=== PATIENT | male | born 1955 | race Caucasian/White ===

== ENCOUNTER 2024-03-18 16:23 | Emergency (ER) | payer MEDICARE, SELFPAY ==
[2024-03-18 16:50] VITALS: BP 149/83; PULSE 95; RESP 17; TEMP 36.9; O2SAT 100; BMI 27.7
--- NOTE | 2024-03-18 18:26 | ED_ITS ---
Discharge Plan Disposition Patient Disposition: Home, Self-Care Condition: Good Prescriptions Prescriptions: No Action lisinopril 10 mg tablet 10 mg PO DAILY Referrals Follow up/Referrals: Daljit Mai MD [Primary Care Provider] - See instructions Activity Restrictions/Add. Instructions Additional Instructions/Restrictions: Keep site clean and dry. If symptoms worsen or you develop new symptoms return to clinic/ER. Clinical Impressions Clinical Impression: Laceration of head Qualifiers: Encounter type: initial encounter Location of open wound of head: scalp Foreign body presence: without foreign body Qualified Code(s): S01.01XA - Laceration without foreign body of scalp, initial encounter Instructions Patient Instructions: DI for Open Laceration Print Language Print Language: Finnish Discharge ED Provider: Aline Ortega [facility] General Stated complaint: AO 03/18/24 1545 hit in head with board Mode of Arrival: Ambulatory Source of Information: Patient Limitations: No Limitations Time Seen by Provider: 03/18/24 18:09 Description of Symptoms (Recalled from Triage Doc. by RN): PATIENT C/O LACERATION TO TOP OF HEAD AFTER GETTING HIT WITH A BOARD THIS AFTERNOON HEENT Symptoms (Recalled from RN notes): Yes Resp Symptoms (Recalled from RN notes): No Skin Symptoms (Recalled from RN notes): Yes MS Symptoms (Recalled from RN notes): No Functional Status (Recalled from RN notes): WNL History of Present Illness Provider Complaint: Pt reports that he was working in the barn and a beam fell on his head. He relates that he has a laceration on his head. He denies LOC, dizziness, or confusion. Related Data Home Medications ?Medication ?Instructions ?Recorded ?Confirmed lisinopril 10 mg tablet 10 mg PO DAILY 02/20/18 03/18/24 Allergies Allergy/AdvReac Type Severity Reaction Status Date / Time doxycycline Allergy Unknown Verified 03/18/24 17:06 allergy reaction Sulfa (Sulfonamide Allergy Unknown Verified 03/18/24 17:06 Antibiotics) allergy reaction Worker's Comp Is this a Worker's Comp case?: No [facility] Disclaimer: The information contained in this section may have been updated after the patient was seen, as this information can be updated by other users. Medical History (Updated 03/18/24 @ 18:34 by Aline Ortega APRN) Hypertension Social History Smoking Status: Never smoker alcohol intake: never current occupational status: employed Travel in the last 8 weeks: Inside the [place] ROS Obtained: Yes All systems reviewed & no additional complaints except as documented Constitutional Constitutional: Reports system reviewed and no additional complaints, except as documented Eyes Eyes: Reports system reviewed and no additional complaints, except as documented ENT Ears, Nose, Mouth, and Throat: Reports system reviewed and no additional complaints, except as documented Cardiovascular Cardiovascular: Reports system reviewed and no additional complaints, except as documented Respiratory Respiratory: Reports system reviewed and no additional complaints, except as documented Gastrointestinal Gastrointestingal: Reports system reviewed and no additional complaints, except as documented Genitourinary Male Genitourinary: Reports system reviewed and no additional complaints, except as documented Musculoskeletal Musculoskeletal: Reports system reviewed and no additional complaints, except as documented Integumentary/Breasts Skin/Breast: Reports system reviewed and no additional complaints, except as documented and Reports as per HPI Comments: head laceration Neurologic Neurologic: Reports system reviewed and no additional complaints, except as documented Endocrine Endocrine: Reports system reviewed and no additional complaints, except as documented Hematologic/Lymphatic Henatologic/Lymphatic: Reports system reviewed and no additional complaints, except as documented Allergic/Immunologic Allergic/Immunologic: Reports system reviewed and no additional complaints, except as documented Physical Exam General General appearance: alert and in no apparent distress Expanded Head Exam Head exam physical: Present laceration Head image: 2 1. laceration. Approx 1/2 inch. Well approximated. Eye Eye exam: Present normal appearance ENT ENT exam: Present normal exam and normal oropharynx Neck Neck exam: Present normal inspection and full ROM Chest Chest inspection: Present normal inspection and symmetric chest wall rise Respiratory Respiratory exam: Present normal lung sounds bilaterally Cardiovascular Cardiovascular exam: Present regular rate and normal rhythm Abdominal Exam Abdominal exam: Present soft Extremities Exam Extremities exam: Present normal inspection Back Exam Back exam: Present normal inspection Neurological Exam Neurological exam: Present alert, oriented X3 and normal gait Psychiatric Psychiatric exam: Present normal affect and normal mood Skin Skin exam: Present warm, dry and other (laceration on top of head) Lymphatic Lymphatic Findings: no adenopathy Medical Decision Making Medical Records Screening: Per USPSTF and CDC recommendations, given the prevalence of disease in our region, it is our hospital?s policy to screen for HIV and viral Hepatitis for all patients aged 18 and over and those with ongoing risk factors. Thierno Inquiry Pt receiving controlled substance: No Thierno was queried for this patient: No Vital Signs: 11/09/24 16:50 Temperature 98.5 F Temperature Source Oral Pulse Rate [Left Brachial] 95 H Respiratory Rate 17 Blood Pressure [Left Arm] 149/83 H Blood Pressure Mean [Left Arm] 105 Blood Pressure Source [Left Arm] Automatic Cuff Blood Pressure Position [Left Arm] Sitting 02 Sat by Pulse Oximetry 100 Oxygen Delivery Method Room Air Medical Decision Narrative: Discussed the pros and cons of staple placement. Pt states that he does not wish to have scott at this time.
[2024-03-18 18:39] VITALS: BP 149/83; PULSE 95; RESP 17; TEMP 36.9; O2SAT 100
== END 2024-03-18 18:41 | disposition home or self-care (01) ==
PROVIDERS: Emergency Provider Nurse Practitioner Family; PCP Family Medicine
DX: S01.01XA Laceration without foreign body of scalp, initial encounter (principal); W22.8XXA Striking against or struck by other objects, initial encounter
CPT/HCPCS: 12001; 99214; G0382

== ENCOUNTER 2024-04-19 11:29 | Day surgery (SDC) | payer MEDICARE, SELFPAY ==
[2024-04-18 13:34] VITALS: BMI 29.5
[2024-04-19] MEDS: LACTATED RINGERS 1000ML 1,000 ML 25 ML IV (11:50)
[2024-04-19 11:55] VITALS: BP 165/83; PULSE 78; RESP 18; TEMP 36.3; O2SAT 99
--- NOTE | 2024-04-19 12:28 | EXP.ANES.CKL ---
[facility] Disclaimer: The information contained in this section may have been updated after the patient was seen, as this information can be updated by other users. Medical History Hypertension Surgical History History of esophagogastroduodenoscopy (EGD) History of colonoscopy Family History (Updated 04/19/24 @ 11:50 by Mary Morris RN) Other No significant family history Social History (Updated 04/19/24 @ 11:51 by Mary Morris RN) Smoking Status: Never smoker alcohol intake: never substance use type: denies use current occupational status: employed Travel in the last 8 weeks: None caffeine: No [facility] Anesthesia Checklist Patient Identification Patient Identification: Verbal (Name & ) Structural Data Admitted From: Home Planned Operative Procedure/s: egd,colonoscopy Consent for Planned Operative Procedure(s) Verified: Yes NPO Status Verified Time NPO: 00:00 Airway Assessment Mallampati Score:: Class II C-Spine Mobility Assessed: Yes TMJ Mobility Assessed: Yes Dentition: Good Dentition Neurological Assessment Level of Consciousness: Awake, Alert and Appropriate Anesthesia Plan Anesthesia Risk discussed: Yes Anesthesia Plan: Verified ASA Class: II Anesthesia Type: MAC
[2024-04-19 12:49] VITALS: O2SAT 99
--- NOTE | 2024-04-19 12:49 | P.HP_ITS ---
History of Present Illness *Admission Date: 04/19/24 *Reason for visit:: Iron deficiency anemia/right upper quadrant abdominal discomfort *History of present illness: Mr. Hubbard is a 68-year-old gentleman who is here for diagnostic upper endoscopy and diagnostic colonoscopy secondary to iron deficiency anemia and right upper quadrant abdominal pain. The examination is deemed medically necessary for diagnostic panendoscopy. The patient has been seen, interviewed and examined prior to the procedure by both myself and the anesthesia provider. [facility] Disclaimer: The information contained in this section may have been updated after the patient was seen, as this information can be updated by other users. Medical History (Updated 04/19/24 @ 12:51 by Zeb Coppola II, MD) Hypertension Surgical History History of esophagogastroduodenoscopy (EGD) History of colonoscopy Family History (Updated 04/19/24 @ 11:50 by Mary Morris RN) Other No significant family history Social History (Updated 04/19/24 @ 12:29 by Chapincito Powers CRNA) Smoking Status: Never smoker alcohol intake: never substance use type: denies use current occupational status: employed Travel in the last 8 weeks: None caffeine: No Other Medical History Have you received the Pneumonia Vaccine: No Review of Systems Review of Systems Review of systems (narrative): Negative *Cardiovascular Comments: Negative *Gastrointestinal Comments: Negative *Genitourinary Comments: Negative *Musculoskeletal Comments: Negative *Neurologic Comments: Negative Meds Home Medications and Allergies Home Medications ?Medication ?Instructions ?Recorded ?Confirmed ?Type lisinopril 10 mg tablet 10 mg PO DAILY 02/20/18 04/19/24 History methylcellulose (laxative) 500 mg 500 mg PO DAILY 03/29/24 04/19/24 History tablet (Citrucel) polyethylene glycol 3350 17 17 g PO DAILY 03/29/24 04/19/24 History gram/dose oral powder (Miralax) New Prescriptions to Start Prescriptions: Allergies Allergy/AdvReac Type Severity Reaction Status Date / Time doxycycline Allergy Unknown Verified 04/19/24 11:52 allergy reaction Sulfa (Sulfonamide Allergy Unknown Verified 04/19/24 11:52 Antibiotics) allergy reaction Exam Data for Last 24 hours Vital signs and Labs for Last 24 Hours: Temp Pulse Resp BP Pulse Ox O2 Del Method 97.3 F L 78 18 165/83 H 99 Room Air 04/19/24 11:55 04/19/24 11:55 04/19/24 11:55 04/19/24 11:55 04/19/24 11:55 04/19/24 11:55 I & O for Last 24 hours: Intake & Output 04/16/24 04/17/24 04/18/24 04/19/24 23:59 23:59 23:59 23:59 Weight 200 lb *Routine HEENT Exam Head: Present normocephalic Eye: Present EOMI and PERRL ENT: Present mucous membranes moist *Routine Neck Exam Neck: Present supple *Routine Respiratory Exam Respiratory: Present CTA bilaterally *Routine Cardiovascular Exam Cardiovascular: Present RRR *Routine Abdominal Exam Abdominal: Present soft and normoactive bowel sounds; Absent tenderness *Routine Rectal Exam Rectal:: deferred *Routine Genitalia Exam Genitalia:: deferred *Routine Extremities Exam Extremities: Absent cyanosis, clubbing or edema *Routine Skin Exam Skin: Present warm; Absent rash *Routine Neurological Exam Neurological: Present alert and oriented X3 Assessment and Plan *Assessment and plan (1) Iron deficiency anemia: Status: Acute Category: Medical Code(s): D50.9 - Iron deficiency anemia, unspecified (2) Right upper quadrant abdominal pain: Status: Acute Category: Medical Code(s): R10.11 - Right upper quadrant pain Plan A/P: 1. Iron deficiency anemia with right upper quadrant abdominal pain is the preprocedural diagnosis. The patient will be anesthetized/sedated using MAC sedation. The patient has been seen and examined. Cardiac and lung assessment prior to the examination is stable. Proceed with planned diagnostic EGD and diagnostic colonoscopy
--- NOTE | 2024-04-19 12:52 | P.PCN_ITS ---
[facility] Procedure Note Date: 04/19/24 Time: 13:07 Procedure Note:: Upper Endoscopy Procedure Report: Esophagogastroduodenoscopy with cold biopsies Endoscopost: Zeb Coppola II, MD Referring Physician: Wayne Mai MD Date of Procedure: April 19, 2024 Equipment: Olympus GIF 190 standard upper endoscope Sedation: MAC sedation Indications: Mr. Aguillon is a 68-year-old gentleman who is here for diagnostic upper endoscopy and colonoscopy secondary to iron deficiency anemia. His fe rritin level was 8 and iron saturation of 4%. His iron levels were 17. The patient's hemoglobin and hematocrit were 9.3 and 32.8. He reports no bright red rectal bleeding, melena or hematochezia. He does have dark stools. He was taking ibuprofen but stopped taking this. 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 He does take the fiber bowel regimen (combined MiraLAX plus Citrucel daily) and has had regular bowel function with this. He had a Cologuard last year that was negative. He reports no change in bowel habits, weight loss or family history of colon cancer. His last EGD and colonoscopy were 14 years ago (in 2009). He did have a duodenal ulcer in 2004. Procedure: Prior to the procedure, a history and physical exam was performed, and patient's medications and allergies were reviewed. The risks, benefits and alternatives of the sedation and procedure were discussed with the patient. All questions were answered and informed consent was obtained. The patient was brought to the procedure room. Patient identification and proposed procedure were verified by the physician and the nurse. The patient was placed in a left lateral decubitus position and the scope was passed under direct vision. Throughout the procedure, the patient's blood pressure, pulse, and oxygen saturations were monitored continuously. The upper GI endoscopy was accomplished without difficulty. The patient tolerated the procedure well. Findings: The scope was passed directly into the upper esophagus and advanced to the third portion of the duodenum. The post bulbar duodenum and duodenal bulb were normal with normal mucosa and conniventes. Cold biopsies were obtained from the duodenal bulb and first portion of duodenum to rule out celiac disease. There were no angiodysplasias, ulcerations or erosions. The scope was withdrawn through a normal duodenal bulb and pylorus into the stomach. There was some mild linear reactive gastropathy with a couple of erosions (possibly secondary to NSAIDs). There was no chronic gastritis. Biopsies were taken from the antrum to rule out H. pylori. Upon retroflexion there was a small 2 cm hiatal hernia. The scope was then withdrawn into the esophagus. There was no evidence of reflux esophagitis or Escobedo's. The remainder of the esophageal mucosa was normal. Impression: 1. Nonerosive GERD with small 2 cm hiatal hernia 2. Mild linear reactive gastropathy Plan: I did not see any clear source for his iron deficiency anemia from the upper digestive tract. This certainly could have been related to use of NSAIDs/ibuprofen. I will proceed with diagnostic colonoscopy.
--- NOTE | 2024-04-19 13:07 | HMH.PROCNOTE ---
[facility] Procedure Note Date: 04/19/24 Time: 13:29 Procedure Note:: Colonoscopy Procedure Report: Colonoscopy with cold biopsies and cold snare polypectomy Endoscopist: Zeb Coppola II, MD Referring physician: Wayne Mai MD Date of Procedure: April 19, 2024 Equipment: Olympus 190 variable stiffness pediatric colonoscope Sedation: MAC sedation Indication: Mr. Aguillon is a 68-year-old gentleman with iron deficiency anemia. He was taking ibuprofen. His upper endoscopy did not show any clear source of chronic GI blood loss. The patient's ferritin level was 8 with iron saturation of 4%. His hemoglobin hematocrit were 9.3 and 32.8. His last colonoscopy was in 2009. He had a negative Cologuard last year. He does have some right upper abdominal discomfort which is chronic and presumably secondary to hepatic flexure syndrome. He was having some dark stools but no bright red blood per rectum or melena. He reports no weight loss or family history of colon cancer. Procedure: Prior to the procedure, a history and physical exam was performed, and patient's medications and allergies were reviewed. The risks, benefits and alternatives of the sedation and procedure were discussed with the patient. All questions were answered and informed consent was obtained. The patient was brought to the procedure room. Patient identification and proposed procedure were verified by the physician and the nurse. The patient was placed in a left lateral decubitus position and the scope was passed under direct vision. Throughout the procedure, the patient's blood pressure, pulse, and oxygen saturations were monitored continuously. The colonoscopy was accomplished without difficulty. The patient tolerated the procedure well. Findings: On digital rectal examination there was normal rectal tone. There were no external hemorrhoids. The colonoscope was introduced through the anal canal to the rectum and advanced to the cecum. The ileocecal valve and appendiceal orifice were identified. The scope was advanced a short distance into the ileum which appeared grossly normal. The scope was then withdrawn into the colon. There was a small 2 to 3 mm polyp in the ascending colon removed via cold biopsy. There was a 5 to 6 mm polyp in the descending colon removed via cold snare polypectomy. The remaining cecum, ascending and transverse colon and mucosa were grossly normal. There was some angulation at the hepatic flexure which is likely related to his hepatic flexure syndrome. There were scattered diverticuli throughout the descending and sigmoid colon (LEFT colon). The rectum itself was normal. Upon retroflexion within the rectum there were grade 1-2 internal hemorrhoids. The preparation was excellent throughout with Lamar Preparation Score of 9. The cecal time was 13 minutes. Impression: 1. Diminutive colonic polyps x 2 2. Left-sided diverticulosis 3. Grade 1-2 internal hemorrhoids Plan: I will follow-up the polyp histology and recommend repeat surveillance colonoscopy again in 7 to 10 years based upon the pathology. I would continue the fiber bowel regimen (combined MiraLAX plus Citrucel) on a maintenance basis. Again, there was no etiology for his iron deficiency. I would consider Hemoccult testing. If he is Hemoccult positive I would consider PillCam/video capsule enteroscopy.
[2024-04-19 13:33] VITALS: BP 107/60; PULSE 70; TEMP 36.4; O2SAT 99
[2024-04-19 13:43] VITALS: BP 99/66; PULSE 72; RESP 18; O2SAT 98
[2024-04-19 13:53] VITALS: BP 120/73; PULSE 73; RESP 18; O2SAT 99
[2024-04-19 14:03] VITALS: BP 131/71; PULSE 70; RESP 18; O2SAT 99
== END 2024-04-19 14:03 | disposition home or self-care (01) ==
PROVIDERS: PCP Family Medicine; Visit Provider Internal Medicine Gastroenterology
PROC: 0DJ08ZZ Inspection of Upper Intestinal Tract, Via Natural or Artificial Opening Endoscopic (ICD-10-PCS; CPT 43235; principal; 2024-04-19 13:00)
DX: D50.9 Iron deficiency anemia, unspecified (principal); R10.11 Right upper quadrant pain; K21.9 Gastro-esophageal reflux disease without esophagitis; K44.9 Diaphragmatic hernia without obstruction or gangrene; K31.9 Disease of stomach and duodenum, unspecified; K63.5 Polyp of colon; K57.30 Diverticulosis of large intestine without perforation or abscess without bleeding; K64.8 Other hemorrhoids
CPT/HCPCS: 43239; 45380; 45385; 88305; J7120

== ENCOUNTER 2024-04-24 09:28 | Outpatient (CLI) | payer MEDICARE, SELFPAY ==
[2024-04-24 11:47] LABS: Occult Blood,Stool Negative (Negative)
== END 2024-04-24 23:59 | disposition home or self-care (01) ==
PROVIDERS: PCP Family Medicine; Visit Provider Internal Medicine Gastroenterology
DX: D50.9 Iron deficiency anemia, unspecified (principal)
CPT/HCPCS: 82272; G0328